=== PATIENT | female | born 1940 | race Native Hawaiian/Other Pacific Islander ===

== ENCOUNTER → 2017-06-14 | Outpatient (CLI) | payer MEDICARE, BC ==
--- NOTE | 2017-06-14 15:02 | US ---
EXAMINATION TYPE: US abdomen limited DATE OF EXAM: 06/14/2017 COMPARISON: NONE CLINICAL HISTORY: R10.11 RUQ abdominal pain. Abdominal pain worse within RUQ and epigastric with pres sure EXAM MEASUREMENTS: Liver Length: 13.9 cm Gallbladder Wall: 0.4 cm CBD: 0.6 cm Right Kidney: 10.5 x 4.4 x 4.6 cm Pancreas: Obscured by bowel gas Liver: attenuating Gallbladder: multiple stones, thickened GB wall, possible pericholecystic fluid Evidence for sonographic Aden's sign: Yes CBD: appears wnl Right Kidney: no evidence of hydronephrosis or mass Visualized liver is heterogeneously hyperechoic without hepatic ductal dilatation. Evaluation for foc al masses suboptimal due to the heterogeneity. There are multiple shadowing mobile gallstones in gallbladder. There is abnormal gallbladder wall thi ckening measuring up to 5 mm with pericholecystic fluid and slight ill-definition. Sonographic Aden 's sign is positive. Gallbladder has distended margins. IMPRESSION: There are gallstones with additional secondary ultrasound evidence supportive of a diagno sis of acute cholecystitis given patient's symptoms. Surgical evaluation should be considered. Ordering physician made aware of results by eeg technologist shortly after dictation. A Document Only message has been documented for Zafar Guajardo MD in the [facility] Result system on 06/14/2017 2:59 PM, Message ID [id number].
== END | disposition home or self-care (01) ==
LOC: RADUSMAIN 13:47
PROVIDERS: ATTEND Internal Medicine
DX: K80.00 Calculus of gallbladder with acute cholecystitis without obstruction (principal)
CPT/HCPCS: 76705

== ENCOUNTER → 2017-06-27 | Outpatient (CLI) | payer MEDICARE, BC ==
--- NOTE | 2017-06-27 11:06 | XR ---
EXAMINATION TYPE: XR abdomen 1V DATE OF EXAM: 06/27/2017 COMPARISON: NONE HISTORY: Right-sided pain TECHNIQUE: One view abdominal series FINDINGS: The osseous structures are intact. The bowel gas pattern is nonspecific. Lung bases are clear. Surg ical clip in the right upper quadrant. Degenerative change of the spine with scoliotic curvature. Sky cifications in the upper pelvis are nonspecific. IMPRESSION: 1. Nonspecific abdomen. Nonspecific right hemipelvic calcifications.
[2017-06-27 12:09] LABS: HGB 16.3 gm/dL (11.4-16.0); WBC 7.3 k/uL (3.8-10.6)
[2017-06-27 12:10] LABS: CH 31.8; CHCM 33.4; HCT 48.8 % (34.0-46.0); HDW 2.39; MCHC 33.5 g/dL (31.0-37.0); MCV 95.5 fL (80.0-100.0); RDW 13.7 % (11.5-15.5)
[2017-06-27 12:11] LABS: Basophils % (A) 0 %; Eosinophils # (A) 0.1 k/uL (0-0.7); Eosinophils % (A) 1 %; Luc # (Auto) 0.07; Luc % (Auto) 1; Lymphocytes # (A) 0.7 k/uL (1.0-4.8); Lymphocytes % (A) 9 %; Monocytes # (A) 0.3 k/uL (0-1.0); Monocytes % (A) 4 %; Neutrophils # (A) 6.1 k/uL (1.3-7.7); Neutrophils % (A) 85 %
[2017-06-27 12:12] LABS: ALT 697 U/L (9-52); Alkaline Phosphatase 267 U/L (38-126); Anion Gap 10 mmol/L; Blood Urea Nitrogen 16 mg/dL (7-17); Calcium 9.7 mg/dL (8.4-10.2); Carbon Dioxide 23 mmol/L (22-30); Chloride 107 mmol/L (98-107); Glucose 153 mg/dL (74-99); Non-African American GFR(MDRD) >60 (>60 ml/min/1.73 sqM); Potassium 4.4 mmol/L (3.5-5.1); Sodium 140 mmol/L (137-145); Total Bilirubin 1.7 mg/dL (0.2-1.3); Total Protein 7.1 g/dL (6.3-8.2)
[2017-06-27 13:13] LABS: AST 799 U/L (14-36); Amylase 841 U/L (30-110)
== END | disposition home or self-care (01) ==
LOC: RADXRMAIN 10:41
PROVIDERS: ATTEND Internal Medicine
DX: R93.5 Abnormal findings on diagnostic imaging of other abdominal regions, including retroperitoneum (principal); R10.811 Right upper quadrant abdominal tenderness; K80.00 Calculus of gallbladder with acute cholecystitis without obstruction
CPT/HCPCS: 74000; 80053; 82150; 83690; 85025